=== PATIENT | female | born 1965 ===

== ENCOUNTER 2025-05-07 08:45 | Outpatient (AMB) | payer OTHER, SELFPAY ==
--- NOTE | 2025-05-07 08:57 | MHC.OFFVIS ---
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 The patient is a 59 year woman with a known history of sarcoidosis. Apparently she was living in [place] at that time many years ago where she started developing pleuritic chest pain. She also developed a lesion on her leg. She went to see her primary care who was pulmonary specialists. At that point she did have a chest x-ray that was abnormal. The lesion was treated topically. Ultimately underwent bronchoscopy and had a biopsy-proven diagnosis of sarcoidosis. Based on the patient's symptoms and recovering she did not need prednisone. She then followed up with Pulmonary as an outpatient. Her CT scans of the chest demonstrating significant perivascular impaired lymphatic nodular densities and opacities consistent with her sarcoidosis. She also had calcified lymphadenopathy. She had multiple CAT scans throughout the years and they have been stable. The last CT scan she had him [place] was back in 2023 demonstrating stability of disease. Although she did have 1 small area in the left upper lobe of tree-in-bud. Apparently she had imaging study after that that was stable. The patient also had pulmonary function studies her for further capacity had been decreasing some. Will go ahead and plan to repeat those when she returns. She denies any visual involvement although she does get dry eyes and sometimes some inflammation of the eyelids. She denies any heart or kidney involvement from sarcoid standpoint. The only involving that she is aware of is her skin in her lungs. She will be following up with Cardiology. As she does have elevated cholesterol. Although is reassuring she does not have any mention of coronary calcifications on her CAT scan. Will go ahead and follow-up in 6 months with PFTs and a chest x-ray. In the meantime she will undergo blood work to assess of organs function and Sinan level. Will also assess for different inflammatory autoimmune conditions. [facility] Medical History (Updated 05/07/25 @ 09:35 by Francis Velasco MD) Lymphadenopathy Pulmonary nodules Sarcoidosis Social History (Updated 05/07/25 @ 09:02 by Tennille Felix CMA) Patient Tobacco Use Status: Never used Tobacco Review of Systems Const Reports body aches and Denies fever(s) Eyes Reports dry eyes and Reports irritation ENT Denies dry mouth Card Denies chest pain, Denies dyspnea and Denies dyspnea on exertion Resp Denies cough, Denies dyspnea, Denies dyspnea on exertion and Denies wheezing GI Denies abdominal pain Musc Denies abnormal gait and Reports myalgias Skin/Breast Denies rash Neuro Denies abnormal gait Endo Reports no additional complaints Hu/Lymph Reports lymphadenopathy Aller/Immun Denies wheezing Physical Exam Vital Signs: Last Vital Signs Pulse 78 05/07/25 08:59 BP 108/64 05/07/25 08:59 Pulse Ox 98 05/07/25 08:59 Oxygen Delivery Method Room Air 05/07/25 08:59 BMI result Body Mass Index 22.9 Const General: comfortable HEENT Head: Yes normocephalic Eyes General: appearance normal, both eyes and all related structures Neck Neck: Yes supple Chest Chest palpation & inspection: normal inspection of the chest Resp Effort & Inspection: normal respiratory effort Auscultation: clear to auscultation bilaterally Cardio Rate: regular rate Heart sounds: S1 normal heart sound present and S2 normal heart sound present GI Palpation (GI): Soft to palpation Skin General skin exam: no rashes or lesions noted Extrem General: Yes no clubbing, cyanosis or edema Assessment & Plan Assessment & Plan (1) Sarcoidosis: Code(s): D86.9 - Sarcoidosis, unspecified Category: Medical (2) Pulmonary nodules: Code(s): R91.8 - Other nonspecific abnormal finding of lung field Category: Medical (3) Lymphadenopathy: Code(s): R59.1 - Generalized enlarged lymph nodes Category: Medical Plan Bloodwork CXR/PFTs in 6 months F/U 6 months Orders: Orders Angiotensin Converting Enzyme Today D86.9 - Sarcoidosis, unspecified Erythrocyte Sedimentation Rate Today D86.9 - Sarcoidosis, unspecified Cyclic Citrullinated Peptide Today D86.9 - Sarcoidosis, unspecified PFT pulmonary function test 5 Months D86.9 - Sarcoidosis, unspecified Complete Blood Count Auto Diff Today D86.9 - Sarcoidosis, unspecified Basic Metabolic Panel Today D86.9 - Sarcoidosis, unspecified JT Reflex Titer and Pattern Today D86.9 - Sarcoidosis, unspecified Sjogren's Antibodies Today D86.9 - Sarcoidosis, unspecified XR chest 2V 5 Months D86.9 - Sarcoidosis, unspecified Coding Level of Care Code New Pt Level 4 (95120) Diagnoses Sarcoidosis D86.9 Pulmonary nodules R91.8 Lymphadenopathy R59.1 Time Spent (min) 35
[2025-05-07 08:59] VITALS: BP 108/64; PULSE 78; O2SAT 98; BMI 22.9
== END 2025-05-07 09:32 | disposition home or self-care (01) ==
PROVIDERS: PCP Internal Medicine; Visit Provider Hospitalist
DX: D86.9 Sarcoidosis, unspecified (principal); R91.8 Other nonspecific abnormal finding of lung field; R59.1 Generalized enlarged lymph nodes
CPT/HCPCS: 99204

== ENCOUNTER 2025-05-07 08:45 | Outpatient (REF) | payer OTHER, SELFPAY ==
[2025-05-07 09:48] LABS: MANUAL DIFF FLAG NO
[2025-05-07 10:15] LABS: Hematocrit 40.7 % (37.0-47.0); Hemoglobin 13.0 g/dl (12.0-16.0); Imm Gran Abs Auto 0.01 X10*3/uL (0.00-0.03); Imm Gran Pct Auto 0.2 % (0.0-0.4); Lymphocytes Absolute Auto 1.1 X10*3/uL (1.2-4.9); Mean Corpuscular HGB Conc 31.9 g/dl (31.0-35.0); Mean Corpuscular Hemoglobin 27.3 pg (27.0-33.0); Mean Corpuscular Volume 85.5 fL (80.0-98.0); NRBC Abs Auto 0.000 X10*3/uL (0.0-0.012); NRBC Pct Auto 0.0 /100WBC (0.0-0.2); Platelet Count 201 X10*3/uL (160-400); Red Blood Count 4.76 X10*6/uL (4.20-5.50); White Blood Count 4.6 X10*3/uL (4.8-10.8)
[2025-05-07 10:27] LABS: Anion Gap 12 (12-20); Blood Urea Nitrogen 15 mg/dL (9-16); Calcium 9.9 mg/dL (8.4-10.2); Carbon Dioxide 29 mmol/L (22-29); Chloride 106 mmol/L (96-108); Estimated Glomerular Filt Rate > 60; Potassium 3.6 mmol/L (3.3-5.1); Sodium 143 mmol/L (135-145)
== END 2025-05-07 08:46 | disposition home or self-care (01) ==
LOC: HO.LAB 08:45
PROVIDERS: PCP Internal Medicine; Visit Provider Hospitalist
DX: Z01.84 Encounter for antibody response examination (principal); R59.1 Generalized enlarged lymph nodes; R91.8 Other nonspecific abnormal finding of lung field; D86.9 Sarcoidosis, unspecified
CPT/HCPCS: 36415; 80048; 82164; 85025; 85652; 86038; 86200; 86235